=== PATIENT | female | born 1970 | race Caucasian/White ===

== ENCOUNTER → 2017-12-16 14:22 | Outpatient (CLI) | payer MEDICARE, MEDICAID, SELFPAY | PROVIDERS: Visit Provider Obstetrics & Gynecology | DX: N39.0 Urinary tract infection, site not specified (principal) | CPT/HCPCS: 87077; 87086; 87088; 87186 ==

== ENCOUNTER 2018-01-01 05:51 | Emergency (ER) | payer MEDICARE, MEDICAID, SELFPAY ==
[2018-01-01 05:53] VITALS: BP 155/86; PULSE 76; RESP 9; TEMP 36.8; O2SAT 100; BMI 43.6
[2018-01-01 06:42] LABS: Amphetamine Urine VISTA NEGATIVE (<1000 ng/mL); Barbiturate Urine VISTA NEGATIVE (< 200 ng/mL); Benzodiazepine Urine VISTA NEGATIVE (< 200 ng/mL); Cocaine Urine VISTA NEGATIVE (< 300 ng/mL); Ecstacy Urine VISTA NEGATIVE (< 500 ng/mL); Methadone Urine VISTA NEGATIVE (< 300 ng/mL); PCP Urine VISTA NEGATIVE (< 25 ng/mL); THC Urine VISTA NEGATIVE (< 50 ng/mL); Vista UDS pH Range 5
[2018-01-01 06:54] LABS: Absolute Lymphocyte Count 1.76 X10^3/ul (0.83-4.51); Absolute Neutrophil Count 3.9 X10^3/uL (2.0-7.7); Basophil# 0.01 X10^3/uL; Basophil% 0.2 % (0-1); Eosinophil# 0.25 X10^3/uL; Eosinophils% 3.9 % (0-5); Hematocrit 38.7 % (37-47); Hemoglobin 13.1 g/dl (12.0-15.0); Lymphocyte # 1.76 X10^3/ul (4.0); Lymphocyte % 27.2 % (19-41); Mean Corp Hgb Conc 33.9 g/gl (32-36); Mean Corpuscular Hgb 30.6 pg (27.0-32.0); Mean Corpuscular Volume 90.4 fL (81-99); Mean Platelet Vol. 10.6 fl (6.2-12.0); Monocyte# 0.55 X10^3/uL; Monocyte% 8.5 % (0-10); Neutrophil # 3.89 X10^3/uL (2.7-7.7); Platelet Count 168 K/mm3 (150-450); RBC Distribution Width CV 15.9 % (11.6-14.6); RBC Distribution Width SD 51.9 fl (35.1-43.9); Red Blood Count 4.28 M/mm3 (4.2-5.4); White Blood Count 6.5 K/mm3 (4.4-11.0)
[2018-01-01 07:07] LABS: Anion Gap 7 (5-15); BUN 15 mg/dL (7-18); BUN/Creat Ratio 19.1 RATIO (10-20); Calcium,Total 8.7 mg/dL (8.5-10.1); Chloride 107 mmol/L (98-107); Creatinine, Serum 0.79 mg/dL (0.55-1.02); EST Glomerular Filtration Rate 83 mL/min (>60); Est Glom Filt Rate - Afr Amer 100 mL/min (>60); Estimated Creatinine Clearance 134.73 ml/min; Glucose 97 mg/dL (74-106); Potassium 3.7 mmol/L (3.5-5.1); Sodium Level 141 mmol/L (136-145)
[2018-01-01] MEDS: Acetaminophen 500 MG Tablet 1000 MG PO (07:12)
[2018-01-01 07:15] LABS: POSITIVE COUNT NO; POSITIVE DIFFERENTIAL NO; POSITIVE MORPHOLOGY NO
[2018-01-01 07:23] LABS: Pregnancy, Serum, hCG Quali. NEGATIVE Negative (0-9 Nonpreg)
[2018-01-01 08:24] VITALS: BP 124/62; PULSE 79; RESP 16; O2SAT 98
--- NOTE | 2018-01-01 09:08 | ED.RN ---
TALKED TO AYESHA FROM CRISIS WILL BE HEADING HERE SOON
[2018-01-01 10:05] VITALS: RESP 14
--- NOTE | 2018-01-01 11:00 | ED.VISSUMM ---
- ER Visit Summary Date of Service: 01/01/18 Chief Complaint: [This is an addendum to initial dictation by Dr. Adelso Quiroz.] History of Present Illness: The patient is a 47 F [presented to the emergency department and was fully evaluated by Dr. Quiroz. Care of patient turned over to me in the morning awaiting evaluation of patient by crisis. Patient presented with complaint of being unable to sleep and some slurred speech. Patient does have a history of depression with kathleen and psychosis. Patient was seen by crisis who knows the patient and they are comfortable with sending the patient home. Patient apparently often times will have some difficulty finding words to speak when her kathleen is acting up. She can follow-up with outpatient psychiatric services.] Physical Examination: [HEENT-PERRLA, EOMI. Cranial nerves II through XII grossly intact. TMs clear. Mucous membranes moist. No adenopathy. Cardiovascular-regular rate and rhythm without murmur or ectopy Lungs-clear to auscultation, chest wall stable without crepitus or subcu emphysema Abdomen-normoactive bowel sounds, soft, nontender, no rebound or rigidity, no peritoneal signs. Extremities-intact ?4, normal range of motion, normal pulses, atraumatic] Test Results: [] Emergency Department Course and Treatment: [] Treatment Plan: [Discharged to home with outpatient follow-up] Disposition: [Discharge] Impression: [Manic episode] This note was generated with [employer] dictation software. It may contain incorrect words, spelling, and punctuation that were not noted in review of the chart prior to signing ED Disposition - Plan for ED Patient: Chief Complaint: General Illness Referrals: Laurel Pisano MD [Primary Care Provider] -
--- NOTE | 2018-01-01 11:02 | ED.DEP ---
ED Disposition - Plan for ED Patient: Chief Complaint: General Illness Instructions: ED Manic Depression Referrals: Laurel Pisano MD [Primary Care Provider] - Additional Instructions: Follow up with counselor and psychiatrist as instructed
[2018-01-01 11:07] VITALS: BP 121/60; PULSE 76; RESP 18; O2SAT 97
== END 2018-01-01 11:11 | disposition home or self-care (01) ==
PROVIDERS: Emergency Provider Emergency Medicine; Family Provider Internal Medicine; PCP Internal Medicine
DX: F30.9 Manic episode, unspecified (principal); R51 Headache; F32.9 Major depressive disorder, single episode, unspecified; F29 Unspecified psychosis not due to a substance or known physiological condition; Z79.899 Other long term (current) drug therapy; Z72.0 Tobacco use
CPT/HCPCS: 36415; 80048; 80307; 80320; 84703; 85025; 99283; A4216; G0480

== ENCOUNTER → 2019-02-05 | Outpatient (CLI) | payer MEDICARE, SELFPAY ==
[2019-02-11 08:20] LABS: HPV APTIMA, High Risk Positive (Negative)
== END | disposition home or self-care (01) ==
LOC: LABSPEC 11:14
PROVIDERS: Family Provider Internal Medicine; PCP Internal Medicine; Visit Provider Obstetrics & Gynecology
DX: Z12.4 Encounter for screening for malignant neoplasm of cervix (principal)
CPT/HCPCS: 87624; 88175; G0145

== ENCOUNTER → 2019-08-19 14:45 | Outpatient (CLI) | payer MEDICARE, MEDICAID, SELFPAY ==
--- NOTE | 2019-08-19 | IMM_PTH ---
PATIENT: ZELALEM LAN LOC: [facility] U#:[id number] AGE/SX: 55/F ROOM: RE08/19/[address]: Dr. Nelda Abdullahi MD : 1970 BED: DIS: SPEC #: [id number] RECD: 08/23/19 12:51 STATUS: WILBER REQ #: [id number] CRUZ: 08/19/19 00:[address]: Nelda Martinez DEPT: IMMUNOHISTOCHEMISTRY RECD BY: Natalie Mendez ENTERED: 08/23/19 12:53 SP TYPE: IMMUNO OTHR DR: Dr. Laurel Pisano MD Tissues: Endocervical Procedures: p16 (initial) KI-67 (add) PHYSICIAN & INSTITUTION [place] [address] SPECIMEN INFORMATION: Tissue Source: [facility] Clinical Info: ASCUS, positive HPV Specimen Number: [id number] CPT code: 82435, 85510 METHODOLOGY: Deparaffinized sections of prefer/formalin-fixed tissue or PAP/DQ stained slides are incubated with monoclonal/polyclonal antibodies/oligonucleotide probes. Localization is made via biotin free immunoperoxidase method. Appropriate controls are performed and reacted as expected. Results on target cell population are indicated in the following table: RESULTS: ANTIBODY / CLONE RESULT P16 (E6H4) positive, focal and patchy Ki-67 (30-9) positive, low These tests were developed and their performance characteristics determined by [facility]. They may not have been cleared or approved by the U.S. Food and Drug Administration. The FDA has determined that such clearance or approval is not necessary. The above immunohistochemical/dualISH markers are ordered and reviewed by the Pathologist. INTERPRETATION: ECC: Focal changes suspicious for HPV cytopathic effects. SJ:abby 08/23/19
--- NOTE | 2019-08-19 07:45 | ECC_PTH ---
PATIENT: ZELALEM LAN LOC: [facility] U#:[id number] AGE/SX: 55/F ROOM: RE08/19/[address]: Dr. Nelda Abdullahi MD : 1970 BED: DIS: SPEC #: [id number] RECD: 08/19/19 15:58 STATUS: WILBER REBecky #: [id number] CRUZ: 08/19/19 07:[address]: Nelda Martinez DEPT: SURGICAL PATHOLOGY RECD BY: Manjit Leon ENTERED: 08/20/19 11:59 SP TYPE: ECC OTHR DR: Dr. Laurel Pisano MD Tissues: Endocervical Procedures: Surgery Specimen Level IV HEADER OPERATION: Colposcopy PRE-OP DIAGNOSIS: ASCUS, positive HPV TISSUE SUBMITTED: ECC MICROSCOPIC DIAGNOSIS ECC: Fragments of squamous epithelium with focal changes suspicious for HPV cytopathic effects. Mild chronic inflammation. See comment. SJ:abby 2/17/20 COMMENT Immunohistochemistry ([id number]) for surrogate HPV marker (p16) supports the above diagnosis. Case has been reviewed in consultation with Dr. Pate who concurs with the above diagnosis. IDC:AM MICROSCOPIC DESCRIPTION Slides are reviewed. GROSS DESCRIPTION Received in fixative is one container labeled with the patient's name and designated ECC. The specimen consists of multiple irregular fragments of red-burton soft tissue that in aggregate measure 2 x 2 x <0.1 cm. The specimen is totally submitted in one cassette. / AM:abby 08/20/19 TC:5 CPT: 48679
== END ==
PROVIDERS: PCP Internal Medicine; Visit Provider Obstetrics & Gynecology
DX: R39.15 Urgency of urination (principal)
CPT/HCPCS: 87086; 87088; 88305; 88341; 88342

== ENCOUNTER 2020-11-23 10:17 | Outpatient (RCR) | payer MEDICARE, MEDICAID, SELFPAY ==
--- NOTE | 2020-11-23 12:59 | HP.OTEVAL ---
Patient's Visit Information ZELALEM LAN is a 50 year old F, referred to Occupational Therapy by Dr. David Head, DPM, with a diagnosis of Lymphedema. Date of Evaluation: 11/23/20 Occupational Therapist: Samra Flores, KAUSHIKR/Rogers, CHT - Subjective This 50 year old female was seen for OT services with dx of lymphedema/ venous insufficiency. Pt states she has had swelling in LE for about two years- pt states she went to see a [employer] dining car for skin changes on her bilateral LE and she was told she had lymphedema and needed a home compression pump and to get compression socks. pt states she tried to find a place that would order a compression pump for her but could not find one. pt states she called her insurance and was told they do cover compression pumps but did not tell her what company to contact to get the pump. pt states she was told to get compression socks about 6 months ago. pt states she tried to use compression socks but they increase pain in her LE. pt has order for sequential compression pumps and would like to get it. - Lymphedema (Circumferential Measure) Mid-foot: right 29cm left 29cm Ankle: right 36cm left 36.5cm Lower calf: right 48cm left 44cm Largest calf: right 59cm left 57cm Below knee: right 49cm left 49cm Lower Exremity Comments: pt demo with skin changes and stage II lymphedmea. pt denies any dx of cellulitis - Goals Demonstrate adequate knowledge of self-massage by 2nd week: Yes Demonstrate adequate knowledge skin care/prec by 2nd week: Yes Demonstrate adequate knowledge therapeutic exercises by d/c: Yes Select approp compression garment w/donning/care/wear by d/c: Yes Voice need to replace compression garment every 4-6mo by dc: Yes - Rehabilitation General Assessment: pt demo with skin changes and LE edema consistent with lymphedema. pt demo need for skilled therapy 2-3 visits to ed. pt on life long mtg. of lymphedema and to ensure pt purchased 20-30 mmHg compression socks as well as support pt with DME company that could get pt the prescribed compression pump, therapist ed. pt on companies to order compression socks from that offer petite sizes as well as to watch not to order sizes close to end range of her measurements. therapist ed. pt that sizing charts of different for each company and to watch for minor changes in offered sizes. Today therapist ed. pt on lymph stimulation exercises and how to perform self manual lymph drainage massage. (therapist gave handout on the above ex. and SMLD) Therapist stressed that theses were tools to assist her in life long mtg. of her lymephedma. Therapist asked pt to follow up with apt to ensure understanding of exercises and SMLD but At end of session pt expressed she was frustrated and I'm just going to leave now. pt was going to leave without handouts but therapist was able to get her to take handouts with her. Therapist will send demographic to DME for home compression pump use. questionable if pt will follow rec'd home self manual lymph massage and lymph stim exercises. Due to pts abrupt departure from therapy no further apts were scheduled. Rehabilitation Potential: Questionable - Anticipated Interventions Education re Life-long lymphedema Management, Education re Skin Care and Precautions, Education re Self Massage Techniques, Education re Correct Donning Tech,Care&Wearing Sched Comp Garments, Home Program - Visit Plan TEXT: Thank you for the opportunity to evaluate your patient. For Medicare and Medicare HMO plans, please review the plan of care and approve it. It will need to be FAXED BACK to us at [phone] for Medicare purposes. Please let me know if there are questions or concerns regarding this plan of care. Physician Signature: Date:
--- NOTE | 2021-04-18 09:32 | HP.OT.NRP ---
ZELALEM LAN was seen in my office for initial evaluation on 11/23/20. The following Plan of Care was established for this patient: Anticipated Interventions: Education re Life-long lymphedema Management, Education re Skin Care and Precautions, Education re Self Massage Techniques, Education re Correct Donning Tech,Care&Wearing Sched Comp Garments, Home Program This patient was last seen in our office 11/23/20. Pertinent comments regarding their Occupational therapy will appear below: pt seen for eval only- no further apts schedule and due to time lapse in services pt d/c. At this point I will be discontinuing this patient from occupational therapy. I would be happy to see this patient again in the future if found appropriate by the physician. Thank you! Samra Flores, OTR/L, CHT
== END 2020-11-23 19:00 | disposition home or self-care (01) ==
LOC: OT 10:17
PROVIDERS: PCP Internal Medicine; Referring Provider Podiatrist Foot & Ankle Surgery; Visit Provider Podiatrist Foot & Ankle Surgery
DX: I89.0 Lymphedema, not elsewhere classified (principal)
CPT/HCPCS: 97110; 97166; 97530

== ENCOUNTER → 2021-06-15 12:23 | Outpatient (CLI) | payer BC, MEDICAID, SELFPAY ==
[2021-06-21 21:39] LABS: HPV APTIMA, High Risk Negative (Negative)
== END ==
PROVIDERS: PCP Internal Medicine; Visit Provider Obstetrics & Gynecology
DX: Z12.4 Encounter for screening for malignant neoplasm of cervix (principal)
CPT/HCPCS: 87624; 88175; G0145

== ENCOUNTER → 2022-12-05 | Outpatient (CLI) | payer BC, MEDICAID, SELFPAY ==
[2022-12-10 09:09] LABS: HPV APTIMA, High Risk Negative (Negative)
== END | disposition home or self-care (01) ==
LOC: LABSPEC 13:26
PROVIDERS: PCP Internal Medicine; Visit Provider Nurse Practitioner Women's Health
DX: Z12.4 Encounter for screening for malignant neoplasm of cervix (principal)
CPT/HCPCS: 87624; 88175; G0145

== ENCOUNTER → 2024-06-11 | Outpatient (CLI) | payer MEDICARE, MEDICAID, SELFPAY | END | disposition home or self-care (01) | PROVIDERS: PCP Internal Medicine; Referring Provider Psychiatry & Neurology Neurology; Visit Provider Psychiatry & Neurology Neurology | DX: G93.40 Encephalopathy, unspecified (principal) | CPT/HCPCS: 95819 ==